=== PATIENT | male | born 1985 | race Hispanic/Latino ===

== ENCOUNTER 2016-06-05 22:23 | Emergency (ER) | payer SELFPAY ==
[~2016-06-05] VITALS: Ht 167.6 cm; Wt 62.1 kg
[~2016-06-05 22:23] MED LIST: FLOVENT DISKUS1 DISK IH; LEVAQUIN750 MG PO; LIBRIUM25 MG PO; NO DAILY MEDS; TYLENOL PM1 CAPLET PO; VENTOLIN HFA18 GM IH
[2016-06-05 22:52] LABS: HEMATOCRIT 46.1 % (38.0-50.0); MCH 30.9 PG (29.0-34.0); MCHC 33.6 G/DL (30.0-36.0); MEAN PLAT.VOLUME 10.4 uM^3 (9.0-12.4); PLATELET COUNT 282 K/uL (156-360); RBC DIS.WIDTH-CV 13.8 % (11.8-14.6); RBC DIS.WIDTH-SD 45.4 % (39-53); RED BLOOD COUNT 5.01 M/uL (4.00-5.50)
[2016-06-05 23:11] LABS: CHLORIDE 109 mEq/L (99-109); POTASSIUM 3.5 mEq/L (3.7-5.4); SODIUM 145 mEq/L (136-147)
[2016-06-05 23:13] LABS: GLUCOSE 120 mg/dL (70-99)
[2016-06-05 23:14] LABS: ANION GAP 14 MEQ/L (2-14)
[2016-06-05 23:15] LABS: TOTAL BILIRUBIN 0.2 mg/dL (0.0-1.0)
[2016-06-05 23:16] LABS: SERUM ETHYL ALCOHOL 370 mg/dL
[2016-06-05 23:17] LABS: ALKALINE PHOSPHATASE 63 IU/L (3-129); GFR ESTIMATE (CALCULATED) > 59 mL/min/
[2016-06-05 23:18] LABS: UREA NITROGEN (BUN) 10 mg/dL (9-23)
[2016-06-06 10:41] VITALS: BP 161/68
== END 2016-06-06 10:49 | disposition home or self-care (01) ==
LOC: EME 22:23
PROVIDERS: Emergency Medicine
DX: F32.9 Major depressive disorder, single episode, unspecified (principal); R45.851 Suicidal ideations; R45.850 Homicidal ideations; F10.229 Alcohol dependence with intoxication, unspecified; F41.9 Anxiety disorder, unspecified; J45.909 Unspecified asthma, uncomplicated
CPT/HCPCS: 80053; 81003; 85027; 90837; 99281; 99285; G0480